=== PATIENT | female | born 1955 | race Caucasian/White ===

== ENCOUNTER 2017-06-16 17:30 | Inpatient (IN) | payer BC ==
[~2017-06-16] VITALS: Ht 177.8 cm; Wt 137.9 kg
[2017-06-16 19:30] VITALS: BP 148/70
[2017-06-16] MEDS ORDERED: PLEASE ENTER HEIGHT AND WEIGHT MC SCH (20:33)
[2017-06-16] MEDS ORDERED: FLECAINIDE 50MG TABLET PO SCH (21:00)
[2017-06-16] MEDS ORDERED: morphine SULFATE 10 MG/ML, 1ML IVPush PRN (21:00)
[2017-06-16] MEDS ORDERED: ONDANSETRON 2MG/ML, 2ML IVPush PRN (21:00)
[2017-06-16] MEDS ORDERED: ACETAMINOPHEN 325 MG TABLET PO PRN (21:00)
[2017-06-16] MEDS ORDERED: ZOLPIDEM 5MG TABLET PO PRN (21:00)
[2017-06-16] MEDS ORDERED: PLEASE ENTER ALLERGIES MC SCH ×2 (21:00)
[2017-06-16] MEDS ORDERED: hydrALAzine 20 MG/ML, 1ML IVPush PRN (21:00)
[2017-06-16] MEDS ORDERED: HEPARIN 5,000 UNITS/ML, 1ML IV ONE ×2 (21:30)
[2017-06-16] MEDS ORDERED: HEPARIN 5,000 UNITS/ML, 1ML IV PRN (21:30)
[2017-06-16] MEDS ORDERED: HEPARIN 25,000 UNITS/500ML PMX 500 ML IV PRN (21:30)
[2017-06-16] MEDS: SODIUM CHLORIDE FLUSH 10ML SYR IVF SCH (21:58)
[2017-06-16] MEDS: DOCUSATE 100 MG CAPSULE PO SCH (21:58)
[2017-06-16] MEDS: HEPARIN 25,000 UNITS/500ML PMX 500 ML IV PRN (22:12)
[2017-06-16] MEDS: ESTROGENS CONJUGATED 0.625 MG TABLET PO SCH (23:53)
[2017-06-16] MEDS: VALACYCLOVIR 500MG TABLET PO SCH (23:53)
[2017-06-16] MEDS: OXYcodone IR 5MG TABLET PO PRN (23:53)
[2017-06-17 02:19] VITALS: BP 146/98
[2017-06-17 04:11] LABS: HEMATOCRIT 36.5 % (34.6-47.8); WHITE BLOOD COUNT 5.4 x10^3/uL (3.4-10)
[2017-06-17 04:22] LABS: BLOOD UREA NITROGEN 18 mg/dL (7-18)
[2017-06-17] MEDS: METOPROLOL TARTRATE 25 MG TABLET PO SCH ×2 (05:42→17:52)
[2017-06-17] MEDS: HEPARIN 5,000 UNITS/ML, 1ML IV PRN ×2 (05:43→13:27)
[2017-06-17] MEDS ORDERED: METOPROLOL TARTRATE 25 MG TABLET PO ONE (07:30)
[2017-06-17] MEDS ORDERED: INSULIN ASPART 100 UNITS/ML, PEN SQ-INSULIN SCH (07:30)
[2017-06-17] MEDS ORDERED: ACETAMINOPHEN 325 MG TABLET PO PRN (07:30)
[2017-06-17] MEDS ORDERED: CHLORHEXIDINE MOUTHWASH 15 ML UDC MM PRN (07:30)
[2017-06-17 08:07] VITALS: BP 123/78
[2017-06-17 08:11] LABS: HEMOGLOBIN 11.9 g/dL (11.7-16.4); WHITE BLOOD COUNT 5.1 x10^3/uL (3.4-10)
[2017-06-17 08:19] LABS: ASPARTATE AMINO TRANSFERASE 23 U/L (15-37); BLOOD UREA NITROGEN 16 mg/dL (7-18)
[2017-06-17] MEDS: MUPIROCIN OINT 2%, 22GM TP SCH ×2 (08:39→22:14)
[2017-06-17] MEDS ORDERED: AMLODIPINE 5 MG TABLET PO SCH (09:00)
[2017-06-17] MEDS ORDERED: ESTROGENS CONJUGATED 0.625 MG TABLET PO SCH (09:00)
[2017-06-17] MEDS ORDERED: LOSARTAN 50MG TABLET PO SCH (09:00)
[2017-06-17] MEDS ORDERED: HYDROCHLOROTHIAZIDE 25 MG TABLET PO SCH (09:00)
[2017-06-17] MEDS: SODIUM CHLORIDE FLUSH 10ML SYR IVF SCH ×3 (09:00→19:35)
[2017-06-17] MEDS: VALACYCLOVIR 500MG TABLET PO SCH ×2 (09:46→19:33)
[2017-06-17] MEDS: ESTROGENS CONJUGATED 0.625 MG TABLET PO SCH ×2 (09:46→19:34)
[2017-06-17] MEDS: DULOXETINE 20 MG CAPSULE.DR PO SCH (09:46)
[2017-06-17] MEDS: DOCUSATE 100 MG CAPSULE PO SCH ×2 (09:46→19:34)
[2017-06-17 14:10] VITALS: BP 108/71
[2017-06-17] MEDS ORDERED: HEPARIN 1,000 UNITS/ML, 1ML IVPush ONE (14:30)
[2017-06-17] MEDS: HEPARIN 25,000 UNITS/500ML PMX 500 ML IV PRN (15:00)
[2017-06-17] MEDS ORDERED: HEPARIN 5,000 UNITS/ML, 1ML SQ ONE (15:00)
[2017-06-17] MEDS ORDERED: HEPARIN 5,000 UNITS/ML, 1ML IV ONE (15:30)
[2017-06-17 17:51] VITALS: BP 108/70
[2017-06-17] MEDS ORDERED: POTASSIUM CHLORIDE 20 MEQ TAB.ER.PRT PO ONE (18:00)
[2017-06-17 19:08] VITALS: BP 130/79
[2017-06-17 22:13] VITALS: BP 104/64
[2017-06-17] MEDS: OXYcodone IR 5MG TABLET PO PRN (22:14)
[2017-06-18] MEDS: HEPARIN 5,000 UNITS/ML, 1ML IV PRN (02:19)
[2017-06-18 04:07] VITALS: BP 128/75
[2017-06-18 04:09] VITALS: BP 117/68
[2017-06-18] MEDS ORDERED: METOPROLOL TARTRATE 25 MG TABLET PO ONE (05:00)
[2017-06-18] MEDS: MUPIROCIN OINT 2%, 22GM TP SCH (05:07)
[2017-06-18] MEDS: METOPROLOL TARTRATE 25 MG TABLET PO SCH (06:00)
[2017-06-18] MEDS ORDERED: HEPARIN 1,000 UNITS/ML, 10ML ONE (06:57)
[2017-06-18] MEDS ORDERED: PAPAVERINE 30 MG/ML, 2ML ONE (06:57)
[2017-06-18] MEDS ORDERED: FENTANYL PF 1000 MCG/20ML ONE (07:22)
[2017-06-18] MEDS ORDERED: MIDAZOLAM 10MG/2 ML ONE (07:22)
[2017-06-18] MEDS ORDERED: REGULAR INSULIN 62.5 UNITS in SODIUM CHLORIDE 0.9% 249.375 ML IV PRN ×2 (07:30→13:15)
[2017-06-18] MEDS ORDERED: DEXMEDETOMIDINE 200 MCG in SODIUM CHLORIDE 0.9% 48 ML IV SCH (07:30)
[2017-06-18] MEDS ORDERED: VANCOMYCIN 2,000 MG in SODIUM CHLORIDE 0.9% 250 ML IVPB PRN (07:30)
[2017-06-18] MEDS ORDERED: POTASSIUM CHLORIDE 80 MEQ, SODIUM BICARBONATE 8.4% 10 MEQ, MAGNESIUM SULFATE 0.5 GM, LI... IV PRN (07:30)
[2017-06-18] MEDS ORDERED: VANCOMYCIN 2,000 MG in SODIUM CHLORIDE 0.9% 500 ML IV PRN (07:30)
[2017-06-18] MEDS ORDERED: EPINEPHRINE 2 MG in SODIUM CHLORIDE 0.9% 248 ML IV SCH (07:30)
[2017-06-18] MEDS ORDERED: PHENYLEPHRINE 10 MG in SODIUM CHLORIDE 0.9% 249 ML IV PRN ×2 (07:30→13:15)
[2017-06-18] MEDS ORDERED: MANNITOL PMX 20% 500 ML IVPB PRN (07:30)
[2017-06-18] MEDS ORDERED: CEFUROXIME 1.5 GM in SODIUM CHLORIDE 0.9% 50 ML IVPB PRN (07:30)
[2017-06-18] MEDS ORDERED: ALBUMIN HUMAN 5% 500 ML IV ONE (08:00)
[2017-06-18 08:09] LABS: BLOOD UREA NITROGEN 17 mg/dL (7-18)
[2017-06-18] MEDS ORDERED: TRANEXAMIC ACID 100 MG/ML, 10ML ONE ×2 (08:22)
[2017-06-18] MEDS: DULOXETINE 20 MG CAPSULE.DR PO SCH (09:00)
[2017-06-18] MEDS: DOCUSATE 100 MG CAPSULE PO SCH ×2 (09:00→21:10)
[2017-06-18] MEDS: VALACYCLOVIR 500MG TABLET PO SCH ×2 (09:00→23:57)
[2017-06-18] MEDS: ESTROGENS CONJUGATED 0.625 MG TABLET PO SCH (09:00)
[2017-06-18] MEDS ORDERED: VASOPRESSIN 20 UNIT/ML, 1ML ONE (09:19)
[2017-06-18] MEDS ORDERED: PROPOFOL 10 MG/ML, 20ML ONE (09:19)
[2017-06-18] MEDS ORDERED: ROCURONIUM 10 MG/ML,10ML ONE ×2 (09:19→10:21)
[2017-06-18] MEDS ORDERED: PROTAMINE SULFATE 10 MG/ML, 25ML ONE ×2 (11:10)
[2017-06-18] MEDS ORDERED: CALCIUM CHLORIDE 10%, 10ML SYR ONE ×2 (12:44→13:45)
[2017-06-18] MEDS ORDERED: DOBUTAMINE 250 MG in SODIUM CHLORIDE 0.9% 230 ML IV PRN (13:15)
[2017-06-18] MEDS ORDERED: DEXMEDETOMIDINE 200 MCG in SODIUM CHLORIDE 0.9% 48 ML IV PRN (13:15)
[2017-06-18] MEDS ORDERED: SODIUM CHLORIDE 0.9% 1,000 ML IV PRN (13:15)
[2017-06-18] MEDS ORDERED: NITROGLYCERIN/D5W PMX 240 ML IV PRN (13:15)
[2017-06-18] MEDS ORDERED: INSULIN REGULAR 100 UNITS/ML, 3ML VIAL IVPush PRN (13:30)
[2017-06-18] MEDS ORDERED: ACETAMINOPHEN 650 MG SUPP PR PRN (13:30)
[2017-06-18] MEDS ORDERED: DEXTROSE 50%, 50ML SYRINGE IVPush PRN (13:30)
[2017-06-18] MEDS ORDERED: LACTATED RINGERS 1,000 ML IV PRN (13:30)
[2017-06-18] MEDS: CHLORHEXIDINE MOUTHWASH 15 ML UDC MM SCH (13:30)
[2017-06-18] MEDS ORDERED: MIDAZOLAM 1 MG/ML, 5ML IVPush PRN (13:30)
[2017-06-18] MEDS ORDERED: HYDROmorphone 1 MG/ML, 1ML IVPush PRN (13:30)
[2017-06-18] MEDS ORDERED: DEXTROSE 4 GM TAB.CHEW PO PRN (13:30)
[2017-06-18] MEDS: KSCALE TO 4.5 IV SCH ×2 (13:30→19:30)
[2017-06-18] MEDS ORDERED: ONDANSETRON 2MG/ML, 2ML IVPush PRN (13:30)
[2017-06-18] MEDS ORDERED: BISACODYL 10 MG SUPP PR PRN (13:30)
[2017-06-18] MEDS ORDERED: BISACODYL 5 MG EC TABLET PO PRN (13:30)
[2017-06-18] MEDS ORDERED: SODIUM BICARB 8.4%, 50ML SYRINGE IV PRN (13:30)
[2017-06-18] MEDS ORDERED: GLUCAGON 1 MG IM PRN (13:30)
[2017-06-18] MEDS ORDERED: PROCHLORPERAZINE 5 MG/ML, 2ML IVPush PRN (13:30)
[2017-06-18] MEDS ORDERED: LIDOCAINE 2% 100MG/5ML SYRINGE ONE ×2 (13:45→13:46)
[2017-06-18] MEDS ORDERED: methylPREDNISolone SOD SUCC 125 MG/2 ML ONE (13:45)
[2017-06-18] MEDS ORDERED: ALBUMIN HUMAN 25% 50 ML ONE ×2 (13:45→13:46)
[2017-06-18] MEDS ORDERED: HEPARIN 1,000 UNITS/ML, 30ML ONE (13:45)
[2017-06-18 13:56] LABS: ABG COLLECTION SITE ARTERIAL LINE; FIO2 60 %
[2017-06-18] MEDS: FENTANYL PF 100 MCG/2ML IVPush PRN ×3 (14:18→14:35)
[2017-06-18] MEDS: SODIUM CHLORIDE FLUSH 10ML SYR IVF SCH ×2 (14:18→21:09)
[2017-06-18] MEDS: MAGNESIUM SULFATE 1 GM in SODIUM CHLORIDE 0.9% 50 ML IVPB SCH (14:46)
[2017-06-18] MEDS: morphine SULFATE 10 MG/ML, 1ML IVPush PRN ×2 (14:52→17:41)
[2017-06-18] MEDS ORDERED: POTASSIUM CHLORIDE PMX 100 ML IV ONE (15:00)
[2017-06-18] MEDS: INSULIN ASPART 100 UNITS/ML, PEN SQ-INSULIN SCH ×2 (16:00→21:00)
[2017-06-18] MEDS ORDERED: ALBUTEROL SULFATE 2.5 MG/3 ML NPPB PRN (17:30)
[2017-06-18] MEDS: HYDROcodone/APAP 5/325 TABLET PO PRN (17:37)
[2017-06-18] MEDS ORDERED: VANCOMYCIN 2,100 MG in SODIUM CHLORIDE 0.9% 250 ML IVPB ONE (19:00)
[2017-06-18 20:11] LABS: HEMATOCRIT 32.6 % (34.6-47.8); HEMOGLOBIN 10.9 g/dL (11.7-16.4)
[2017-06-18] MEDS: MUPIROCIN OINT 2%, 22GM NAS SCH (21:00)
[2017-06-18] MEDS: OXYcodone IR 30 MG TABLET PO PRN (21:03)
[2017-06-18] MEDS ORDERED: OXYcodone IR 5MG TABLET ONE (21:03)
[2017-06-18] MEDS: VANCOMYCIN 2,100 MG in SODIUM CHLORIDE 0.9% 500 ML IV SCH (21:06)
[2017-06-18] MEDS ORDERED: SODIUM CHLORIDE 0.9% IV PRN (21:30)
[2017-06-18] MEDS ORDERED: NICARDIPINE IV PRN (21:30)
[2017-06-18] MEDS: CEFUROXIME 1.5 GM in SODIUM CHLORIDE 0.9% 50 ML IV SCH (22:26)
[2017-06-19] MEDS ORDERED: OXYcodone IR 5MG TABLET ONE ×3 (00:51→21:42)
[2017-06-19] MEDS: OXYcodone IR 30 MG TABLET PO PRN ×2 (00:54→03:48)
[2017-06-19] MEDS: CHLORHEXIDINE MOUTHWASH 15 ML UDC MM SCH ×2 (00:57→16:14)
[2017-06-19] MEDS: KSCALE TO 4.5 IV SCH ×2 (01:30→07:30)
[2017-06-19 01:56] LABS: HEMATOCRIT 30.5 % (34.6-47.8); HEMOGLOBIN 10.2 g/dL (11.7-16.4)
[2017-06-19] MEDS ORDERED: POTASSIUM CHLORIDE PMX 100 ML IV ONE (03:00)
[2017-06-19 04:37] LABS: ABG COLLECTION SITE NOT DOCUMENTED
[2017-06-19 06:08] LABS: HEMATOCRIT 30.9 % (34.6-47.8); HEMOGLOBIN 10.5 g/dL (11.7-16.4); WHITE BLOOD COUNT 13.7 x10^3/uL (3.4-10)
[2017-06-19 06:10] LABS: BLOOD UREA NITROGEN 16 mg/dL (7-18)
[2017-06-19] MEDS: INSULIN ASPART 100 UNITS/ML, PEN SQ-INSULIN SCH ×4 (07:00→22:04)
[2017-06-19] MEDS: VANCOMYCIN 2,100 MG in SODIUM CHLORIDE 0.9% 500 ML IV SCH (08:11)
[2017-06-19] MEDS: HYDROcodone/APAP 5/325 TABLET PO PRN ×2 (08:41→16:16)
[2017-06-19] MEDS: CEFUROXIME 1.5 GM in SODIUM CHLORIDE 0.9% 50 ML IV SCH (09:16)
[2017-06-19] MEDS: SODIUM CHLORIDE FLUSH 10ML SYR IVF SCH ×3 (09:17→21:47)
[2017-06-19] MEDS: MUPIROCIN OINT 2%, 22GM NAS SCH ×2 (09:17→21:47)
[2017-06-19] MEDS: VALACYCLOVIR 500MG TABLET PO SCH ×2 (09:18→21:46)
[2017-06-19] MEDS: DOCUSATE 100 MG CAPSULE PO SCH ×2 (09:18→21:45)
[2017-06-19] MEDS: ESTROGENS CONJUGATED 0.625 MG TABLET PO SCH (09:18)
[2017-06-19] MEDS: ASPIRIN 81 MG TABLET EC PO SCH (09:19)
[2017-06-19] MEDS: DULOXETINE 20 MG CAPSULE.DR PO SCH (09:19)
[2017-06-19] MEDS ORDERED: AMIODARONE 900 MG in DEXTROSE 5% 482 ML IV PRN (11:30)
[2017-06-19] MEDS ORDERED: AMIODARONE 150 MG in DEXTROSE 5% 100 ML IV ONE (11:30)
[2017-06-19] MEDS ORDERED: FILTER 0.22 MICRON IV SCH (11:30)
[2017-06-19] MEDS ORDERED: MAGNESIUM HYDROXIDE 8%, 30ML UDC PO PRN (12:00)
[2017-06-19] MEDS: CYCLOBENZAPRINE 10 MG TABLET PO PRN ×2 (12:28→18:46)
[2017-06-19] MEDS: METOPROLOL TARTRATE 25 MG TABLET PO SCH ×2 (12:28→17:44)
[2017-06-19] MEDS: MAGNESIUM SULFATE 1 GM in SODIUM CHLORIDE 0.9% 50 ML IVPB SCH (13:13)
[2017-06-19] MEDS: POTASSIUM CHLORIDE 10 MEQ TABLET.ER PO SCH (16:15)
[2017-06-19] MEDS ORDERED: FUROSEMIDE 20 MG/2 ML IV SCH (17:00)
[2017-06-19 19:06] VITALS: BP 115/59
[2017-06-19] MEDS: OXYcodone IR 5MG TABLET PO PRN (21:46)
[2017-06-20 00:47] VITALS: BP 112/76
[2017-06-20] MEDS: OXYcodone IR 5MG TABLET PO PRN ×4 (00:52→19:53)
[2017-06-20] MEDS: CHLORHEXIDINE MOUTHWASH 15 ML UDC MM SCH ×2 (00:53→13:48)
[2017-06-20] MEDS: INSULIN ASPART 100 UNITS/ML, PEN SQ-INSULIN SCH ×5 (04:06→20:26)
[2017-06-20 05:31] LABS: HEMATOCRIT 29.6 % (34.6-47.8); HEMOGLOBIN 9.8 g/dL (11.7-16.4); WHITE BLOOD COUNT 15.3 x10^3/uL (3.4-10)
[2017-06-20 05:38] LABS: BLOOD UREA NITROGEN 14 mg/dL (7-18)
[2017-06-20] MEDS: METOPROLOL TARTRATE 25 MG TABLET PO SCH ×2 (06:33→18:20)
[2017-06-20 06:34] VITALS: BP 129/76
[2017-06-20] MEDS: HYDROcodone/APAP 5/325 TABLET PO PRN ×2 (08:19→16:19)
[2017-06-20] MEDS ORDERED: ENOXAPARIN 40 MG/0.4 ML SQ SCH (09:00)
[2017-06-20] MEDS: SODIUM CHLORIDE FLUSH 10ML SYR IVF SCH ×4 (09:00→19:55)
[2017-06-20] MEDS ORDERED: FUROSEMIDE 40 MG/4 ML ONE ×2 (10:49→16:15)
[2017-06-20] MEDS: ASPIRIN 81 MG TABLET EC PO SCH (10:59)
[2017-06-20] MEDS: POTASSIUM CHLORIDE 10 MEQ TABLET.ER PO SCH ×2 (11:00→17:00)
[2017-06-20] MEDS: DULOXETINE 20 MG CAPSULE.DR PO SCH (11:00)
[2017-06-20] MEDS: DOCUSATE 100 MG CAPSULE PO SCH ×2 (11:01→19:54)
[2017-06-20] MEDS: MUPIROCIN OINT 2%, 22GM NAS SCH ×2 (11:01→19:54)
[2017-06-20] MEDS: FUROSEMIDE 20 MG/2 ML IV SCH ×2 (11:02→17:00)
[2017-06-20] MEDS: VALACYCLOVIR 500MG TABLET PO SCH ×2 (11:07→20:06)
[2017-06-20] MEDS: ESTROGENS CONJUGATED 0.625 MG TABLET PO SCH (11:07)
[2017-06-20] MEDS: WARFARIN MODERAT DOSE PROTOCOL XX SCH (11:10)
[2017-06-20 12:19] VITALS: BP 121/78
[2017-06-20] MEDS: ENOXAPARIN 100 MG/ML SQ SCH (12:30)
[2017-06-20] MEDS: ENOXAPARIN 40 MG/0.4 ML SQ SCH (12:30)
[2017-06-20] MEDS: MAGNESIUM SULFATE 1 GM in SODIUM CHLORIDE 0.9% 50 ML IVPB SCH (13:48)
[2017-06-20 15:00] VITALS: BP 127/82
[2017-06-20] MEDS ORDERED: METOPROLOL TARTRATE 25 MG TABLET ONE (16:14)
[2017-06-20] MEDS ORDERED: WARFARIN 7.5 MG TABLET PO-COUM ONE (18:00)
[2017-06-20 18:30] VITALS: BP 135/90
[2017-06-21] MEDS: ENOXAPARIN 100 MG/ML SQ SCH ×2 (00:04→17:11)
[2017-06-21] MEDS: ENOXAPARIN 40 MG/0.4 ML SQ SCH ×2 (00:05→17:11)
[2017-06-21] MEDS: OXYcodone IR 5MG TABLET PO PRN ×3 (00:10→21:04)
[2017-06-21 01:26] VITALS: BP 107/67
[2017-06-21] MEDS: CHLORHEXIDINE MOUTHWASH 15 ML UDC MM SCH ×2 (01:30→12:32)
[2017-06-21] MEDS: METOPROLOL TARTRATE 25 MG TABLET PO SCH ×2 (06:10→17:09)
[2017-06-21] MEDS: INSULIN ASPART 100 UNITS/ML, PEN SQ-INSULIN SCH ×2 (07:00→11:00)
[2017-06-21 07:48] VITALS: BP 96/64
[2017-06-21 08:13] LABS: BLOOD UREA NITROGEN 15 mg/dL (7-18)
[2017-06-21 08:44] VITALS: BP 104/73
[2017-06-21] MEDS: FUROSEMIDE 20 MG/2 ML IV SCH ×2 (08:49→17:13)
[2017-06-21] MEDS: SODIUM CHLORIDE FLUSH 10ML SYR IVF SCH ×4 (08:49→21:00)
[2017-06-21] MEDS: DULOXETINE 20 MG CAPSULE.DR PO SCH (08:50)
[2017-06-21] MEDS: MUPIROCIN OINT 2%, 22GM NAS SCH ×2 (08:50→20:59)
[2017-06-21] MEDS: VALACYCLOVIR 500MG TABLET PO SCH ×2 (08:50→21:00)
[2017-06-21] MEDS: ASPIRIN 81 MG TABLET EC PO SCH (08:51)
[2017-06-21] MEDS: ESTROGENS CONJUGATED 0.625 MG TABLET PO SCH (08:51)
[2017-06-21] MEDS: POTASSIUM CHLORIDE 10 MEQ TABLET.ER PO SCH (08:51)
[2017-06-21] MEDS: DOCUSATE 100 MG CAPSULE PO SCH ×2 (08:52→21:00)
[2017-06-21] MEDS ORDERED: CLOPIDOGREL 75 MG TABLET PO SCH (09:00)
[2017-06-21] MEDS: HYDROcodone/APAP 5/325 TABLET PO PRN ×2 (09:42→17:09)
[2017-06-21] MEDS: Enoxaparin 1 mg/kg protocol SQ SCH ×2 (10:00→22:00)
[2017-06-21] MEDS: WARFARIN MODERAT DOSE PROTOCOL XX SCH (12:00)
[2017-06-21 12:46] VITALS: BP 101/69
[2017-06-21] MEDS ORDERED: POTASSIUM CHLORIDE 20 MEQ TAB.ER.PRT PO ONE (17:00)
[2017-06-21] MEDS ORDERED: ENOXAPARIN 40 MG/0.4 ML ONE (17:00)
[2017-06-21] MEDS: POTASSIUM CHLORIDE 20 MEQ TAB.ER.PRT PO SCH (17:11)
[2017-06-21] MEDS ORDERED: WARFARIN 7.5 MG TABLET PO-COUM ONE (18:00)
[2017-06-21 20:46] VITALS: BP 99/65
[2017-06-22 00:33] VITALS: BP 107/73
[2017-06-22] MEDS: OXYcodone IR 5MG TABLET PO PRN ×4 (00:38→23:58)
[2017-06-22] MEDS: CHLORHEXIDINE MOUTHWASH 15 ML UDC MM SCH (00:40)
[2017-06-22 05:11] LABS: BLOOD UREA NITROGEN 20 mg/dL (7-18)
[2017-06-22] MEDS ORDERED: ENOXAPARIN 40 MG/0.4 ML ONE ×2 (05:28→17:59)
[2017-06-22] MEDS: METOPROLOL TARTRATE 25 MG TABLET PO SCH ×2 (05:34→18:13)
[2017-06-22] MEDS: ENOXAPARIN 40 MG/0.4 ML SQ SCH ×2 (05:34→18:12)
[2017-06-22] MEDS: ENOXAPARIN 100 MG/ML SQ SCH ×2 (05:34→18:12)
[2017-06-22 06:43] VITALS: BP 98/66
[2017-06-22] MEDS: ESTROGENS CONJUGATED 0.625 MG TABLET PO SCH (08:51)
[2017-06-22] MEDS: POTASSIUM CHLORIDE 20 MEQ TAB.ER.PRT PO SCH ×2 (08:51→18:13)
[2017-06-22] MEDS: DOCUSATE 100 MG CAPSULE PO SCH ×2 (08:51→20:52)
[2017-06-22] MEDS: DULOXETINE 20 MG CAPSULE.DR PO SCH (08:51)
[2017-06-22] MEDS: FUROSEMIDE 20 MG/2 ML IV SCH ×2 (08:52→18:19)
[2017-06-22] MEDS: ASPIRIN 81 MG TABLET EC PO SCH (08:52)
[2017-06-22] MEDS: VALACYCLOVIR 500MG TABLET PO SCH ×2 (08:52→20:51)
[2017-06-22] MEDS: SODIUM CHLORIDE FLUSH 10ML SYR IVF SCH ×4 (08:53→20:53)
[2017-06-22] MEDS: MUPIROCIN OINT 2%, 22GM NAS SCH ×2 (08:53→20:53)
[2017-06-22] MEDS: HYDROcodone/APAP 5/325 TABLET PO PRN ×2 (10:06→20:54)
[2017-06-22] MEDS: WARFARIN MODERAT DOSE PROTOCOL XX SCH (12:00)
[2017-06-22 13:23] VITALS: BP 111/76
[2017-06-22] MEDS ORDERED: WARFARIN 7.5 MG TABLET PO-COUM ONE (18:00)
[2017-06-22 18:06] VITALS: BP 118/73
[2017-06-22 20:10] VITALS: BP 118/79
[2017-06-23 01:48] VITALS: BP 114/77
[2017-06-23] MEDS: OXYcodone IR 5MG TABLET PO PRN (03:52)
[2017-06-23] MEDS: ENOXAPARIN 40 MG/0.4 ML SQ SCH (05:39)
[2017-06-23] MEDS: ENOXAPARIN 100 MG/ML SQ SCH (05:39)
[2017-06-23] MEDS: METOPROLOL TARTRATE 25 MG TABLET PO SCH (05:39)
[2017-06-23 06:04] LABS: BLOOD UREA NITROGEN 17 mg/dL (7-18)
[2017-06-23] MEDS: FUROSEMIDE 20 MG/2 ML IV SCH (07:30)
[2017-06-23] MEDS ORDERED: CYCL-259 PO (08:42)
[2017-06-23] MEDS ORDERED: WARF2.5T73 PO (08:42)
[2017-06-23] MEDS ORDERED: FURO10VI37 PO (08:42)
[2017-06-23] MEDS ORDERED: ASPI-621 PO (08:42)
[2017-06-23] MEDS ORDERED: POTA20TA6 PO (08:42)
[2017-06-23] MEDS ORDERED: METO25TA35 PO (08:42)
[2017-06-23 09:00] VITALS: BP 100/69
[2017-06-23] MEDS: SODIUM CHLORIDE FLUSH 10ML SYR IVF SCH ×2 (09:00→10:03)
[2017-06-23] MEDS: POTASSIUM CHLORIDE 20 MEQ TAB.ER.PRT PO SCH (10:02)
[2017-06-23] MEDS: MUPIROCIN OINT 2%, 22GM NAS SCH (10:04)
[2017-06-23] MEDS: DULOXETINE 20 MG CAPSULE.DR PO SCH (10:05)
[2017-06-23] MEDS: ASPIRIN 81 MG TABLET EC PO SCH (10:05)
[2017-06-23] MEDS: ESTROGENS CONJUGATED 0.625 MG TABLET PO SCH (10:05)
[2017-06-23] MEDS: DOCUSATE 100 MG CAPSULE PO SCH (10:05)
[2017-06-23] MEDS: VALACYCLOVIR 500MG TABLET PO SCH (10:05)
[2017-06-23] MEDS: HYDROcodone/APAP 5/325 TABLET PO PRN ×2 (10:10→14:35)
[2017-06-23] MEDS: WARFARIN MODERAT DOSE PROTOCOL XX SCH (12:00)
[2017-06-23] MEDS ORDERED: OXYC5CAP2 PO (16:36)
[2017-06-23] MEDS ORDERED: WARFARIN 10 MG TABLET PO-COUM ONE (18:00)
== END 2017-06-23 17:00 | disposition home or self-care (01) | DRG 236 ==
LOC: 5SO 18:27 → CSU 06-18 11:10 → 5SO 06-19 18:56 → DCLOUNGE 06-23 16:26
PROVIDERS: ADMIT Internal Medicine; ATTEND Hospitalist
PROC: 02100Z9 Bypass Coronary Artery, One Artery from Left Internal Mammary, Open Approach (ICD-10-PCS; 2017-06-18)
PROC: 06BP4ZZ Excision of Right Saphenous Vein, Percutaneous Endoscopic Approach (ICD-10-PCS; 2017-06-18)
PROC: 5A1221Z Performance of Cardiac Output, Continuous (ICD-10-PCS; 2017-06-18)
PROC: 021109W Bypass Coronary Artery, Two Arteries from Aorta with Autologous Venous Tissue, Open Approach (ICD-10-PCS; principal; 2017-06-18 08:00)
DX: I25.119 Atherosclerotic heart disease of native coronary artery with unspecified angina pectoris (principal); D68.59 Other primary thrombophilia; E66.01 Morbid (severe) obesity due to excess calories; Z68.41 Body mass index [BMI] 40.0-44.9, adult; I48.0 Paroxysmal atrial fibrillation; E11.9 Type 2 diabetes mellitus without complications; M19.90 Unspecified osteoarthritis, unspecified site; M62.838 Other muscle spasm; R06.03 Acute respiratory distress; E78.00 Pure hypercholesterolemia, unspecified; E78.5 Hyperlipidemia, unspecified; G47.33 Obstructive sleep apnea (adult) (pediatric); I10 Essential (primary) hypertension; Z82.41 Family history of sudden cardiac death; Z79.01 Long term (current) use of anticoagulants; Z82.49 Family history of ischemic heart disease and other diseases of the circulatory system; Z91.14 Patient's other noncompliance with medication regimen; Z98.84 Bariatric surgery status; Z90.5 Acquired absence of kidney; Z52.4 Kidney donor; Z79.899 Other long term (current) drug therapy
CPT/HCPCS: 36415; 36600; 71010; 71020; 80048; 80053; 80061; 81003; 82040; 82330; 82800; 82803; 82810; 82947; 82962; 83036; 83735; 84132; 84295; 85014; 85018; 85025; 85049; 85347; 85520; 85610; 85730; 86850; 86900; 86923; 87081; 93005; 93306; 93312; 93321; 93325; 93970; 94002; 94150; J0697; J1644; J1650; J1815; J2250; J2704; J2720; J3010; J3370; J3475; J3480; J3490; P9045; P9047; C1751; C1760; J0171; J0282; J1940; J2270; J2370; J2440; J2930; J7040; J7050; J7060